=== PATIENT | female | born 1965 | race African-American/Black ===

== ENCOUNTER 2018-08-09 05:12 | Day surgery (SDC) | payer BC ==
[~2018-08-09] VITALS: Ht 167.6 cm; Wt 87.3 kg
--- NOTE | ~2018-08-09 | OP ---
PATIENT NAME: MASSIEL HATHAWAY MEDICAL RECORD: [id number] :69 LOCATION:D[facility] ADMISSION DATE: SURGEON: SHIRIN PACE MD DATE OF OPERATION: 08/09/2018 REFERRING PHYSICIAN: Dr. Manrique of [place]. PREOPERATIVE DIAGNOSIS: Screening colonoscopy. OPERATION PERFORMED: Colonoscopy to cecum. ANESTHESIA: TIVA with propofol per Dr. Padilla. PREOPERATIVE NOTE: Ms. Hathaawy is a 52-year-old -[place] female who is here today for her first screening colonoscopy. She has no indications or symptoms indicating need for colonoscopy other than having had her 52th birthday. DESCRIPTION OF PROCEDURE: Under TIVA and having of course completed a mechanical bowel prep last p.m., she was turned to the lateral decubitus position and a digital rectal exam performed, which was normal and the Olympus colonoscope was introduced through the anal canal and passed through the rectum and sigmoid colon and through the proximal colon to the cecum without difficulty. Only a very few scattered diverticula were seen on the left side and as the scope was removed, no other pathology was seen. Withdrawal time was 11 minutes. The patient will be discharged to home today to continue her usual home medications and a regular diet as tolerated and my recommendation to her will be that she have another screening colonoscopy in 10 years unless there are indications intervening. 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
[2018-08-09] MEDS ORDERED: BAYER CHEWABLE81 MG PO (06:15)
[2018-08-09] MEDS ORDERED: OMEPRAZOLE20 M1 (06:16)
[2018-08-09] MEDS ORDERED: ALIVE (06:16)
[2018-08-09] MEDS ORDERED: ALLERGY RELIEF (06:17)
[2018-08-09] MEDS ORDERED: [UNRECOGNIZED DRUG - OTHER] (06:17)
[2018-08-09] MEDS ORDERED: WOMEN'S ONE A DAY (06:17)
[2018-08-09 06:21] LABS: HEMOGLOBIN 10.8 g/dL (12-16); MCH 27.3 pg (26.0-34.0); MCHC 31.8 g/dL (31.0-37.0); MCV 85.9 fL (80.0-100.0); MEAN PLATELET VOLUME 10.7 fL (7.4-10.4); RBC 3.96 10x6/uL (4.00-5.40); RDW 15.4 % (11.5-14.5); WBC 5.1 10x3/uL (4.8-10.8)
[2018-08-09 06:37] VITALS: BP 107/57; Ht 167.6 cm; Wt 87.3 kg
== END 2018-08-09 09:25 | disposition home or self-care (01) ==
LOC: D.OPS 05:12
PROVIDERS: Anesthesiology
DX: Z12.11 Encounter for screening for malignant neoplasm of colon (principal); K57.30 Diverticulosis of large intestine without perforation or abscess without bleeding; Z01.812 Encounter for preprocedural laboratory examination